=== PATIENT | female | born 1950 | race Caucasian/White ===

== ENCOUNTER 2017-09-23 16:35 | Observation (INO) | payer MEDICARE, OTHER ==
[2017-09-23 17:11] LABS: CHLORIDE,CL 100 mEq/L (98-106); SODIUM,NA 140 mEq/L (136-145)
[2017-09-23] MEDS ORDERED: Sodium Chloride 0.9% 10 ML Syringe FLUSH PRN (17:52)
[2017-09-23] MEDS ORDERED: Furosemide 40 MG/4 ML VIAL IVPUSH SCH (18:00)
[2017-09-23] MEDS ORDERED: Iopamidol 755 Mg/ML 100 ML Bottle IVPUSH ONE (18:26)
[2017-09-23] MEDS: Acetaminophen 325 MG Tab PO PRN (19:50)
[2017-09-23] MEDS: Enoxaparin 40 MG/0.4 ML Syringe SUBCUT SCH (19:52)
[2017-09-23] MEDS: cefTRIAXone 1 GM Vial IVPUSH SCH (19:53)
[2017-09-23] MEDS: Azithromycin 500 MG in Sodium Chloride 0.9% 250 ML IV SCH (19:53)
[2017-09-23] MEDS: Albuterol/Ipratropium 3.0-0.5 MG/3 ML Neb Soln NEB PRN (20:55)
[2017-09-23] MEDS: Codeine/Promethazine 10-6.25 MG/5 ML Syrup 5 ML UD Cup PO PRN (20:56)
[2017-09-23] MEDS: Temazepam 15 MG Cap PO PRN (22:04)
[2017-09-24] MEDS: Acetaminophen 325 MG Tab PO PRN ×3 (01:02→19:39)
[2017-09-24] MEDS: Albuterol/Ipratropium 3.0-0.5 MG/3 ML Neb Soln NEB PRN ×5 (01:02→21:44)
[2017-09-24] MEDS: Ibuprofen 200 MG Tab PO PRN ×3 (03:09→20:43)
[2017-09-24] MEDS: Codeine/Promethazine 10-6.25 MG/5 ML Syrup 5 ML UD Cup PO PRN ×4 (03:10→22:37)
[2017-09-24] MEDS: Cyanocobalamin (Vitamin B12) 1,000 MCG Tab PO SCH (07:59)
[2017-09-24] MEDS ORDERED: Hydrochlorothiazide 25 MG Tab PO SCH (08:00)
[2017-09-24] MEDS ORDERED: Lisinopril 20 MG Tab PO SCH (08:00)
[2017-09-24] MEDS: Furosemide 40 MG/4 ML VIAL IVPUSH SCH (08:03)
--- NOTE | 2017-09-24 10:39 | PN ---
DATE: 09/24/2017 S: Cristela is a 67-year-old female, who presented to the clinic initially yesterday with concerns of shortness of breath. She had noticed that symptoms had been present for about the last 3 days. She noticed that the shortness of breath would worsen with lying down and increase with activity. She did have some increasing swelling in her lower extremities as well, did feel that she was running a mild fever. Complete workup yesterday did show white blood count to be within normal limits, CRP was mildly elevated at 2.4, her D-dimer was elevated at 0.92. As she did have some expiratory wheezing, we did proceed and did a CTA of the chest to rule out PE. PE was negative; however, there was a 1.4 cm nodule in the superior segment of the left lower lobe. With its size, Radiology did recommend further evaluation with a PET-CT or tissue sampling. She does state today that she is feeling a lot better. She feels as if she is not as short of breath. She states she has been up, moving around a little bit, and does not feel like she gets short of breath as she did prior. She denies any concerns today; is feeling much better. O: VITAL SIGNS: Blood pressure 132/50; last O2 saturation was 94% on room air, she was 90% on admission; temperature is mildly elevated again this morning at 99.1; pulse is 73; weight is 268 pounds, up 1 pound from admit. GENERAL: A pleasant cooperative female. She is sitting in her hospital bed, does not really appear to be in any distress whatsoever, is having a normal conversation. HEENT: Grossly unremarkable. LUNGS: Breath sounds are slightly diminished. I do not hear any respiratory distress. No further expiratory wheezing is noted. No rhonchi, no rales or crackles. CARDIAC: Regular. No murmurs are noted. ABDOMEN: Morbidly obese; however, soft, nontender, nondistended. Bowel sounds are present. Normoactive. EXTREMITIES: Diminished pedal edema is noted bilaterally. ASSESSMENT: 1. SHORTNESS OF BREATH. 2. COUGH. 3. PEEL EDEMA, IMPROVED. 4. FEVER. P: I did review laboratory work from this morning, white blood count did drop down to 4900, CRP did increase slightly from 2.4 to 3.9. I did review her CTA of the chest; we will discuss with Dr. Ken with regard to further evaluation after discharge. I did discuss with her keeping her 1 more day, given another dose of Rocephin and azithromycin IV. We will give her one more dose of Lasix IV as well. We will get her up, ambulate and see if she has any decompensation with her O2 saturations. She is in complete agreement. Again, Dr. Ken will continue to follow as well. ZINA/SHAI /[id number]
[2017-09-24] MEDS ORDERED: LISINOPRIL PO ONE (11:00)
[2017-09-24] MEDS ORDERED: HCTZ PO ONE (11:00)
[2017-09-24] MEDS: cefTRIAXone 1 GM Vial IVPUSH SCH (18:00)
[2017-09-24] MEDS: Enoxaparin 40 MG/0.4 ML Syringe SUBCUT SCH (18:00)
[2017-09-24] MEDS: Azithromycin 500 MG in Sodium Chloride 0.9% 250 ML IV SCH (18:00)
[2017-09-24] MEDS: Temazepam 15 MG Cap PO PRN (21:52)
[2017-09-25] MEDS: Albuterol/Ipratropium 3.0-0.5 MG/3 ML Neb Soln NEB PRN ×2 (04:45→09:20)
[2017-09-25] MEDS: Acetaminophen 325 MG Tab PO PRN ×2 (05:36→11:48)
[2017-09-25] MEDS: Furosemide 40 MG/4 ML VIAL IVPUSH SCH (07:34)
[2017-09-25] MEDS: Cyanocobalamin (Vitamin B12) 1,000 MCG Tab PO SCH (07:34)
[2017-09-25] MEDS ORDERED: LISINOPRIL PO SCH (08:00)
[2017-09-25] MEDS ORDERED: HCTZ PO SCH (08:00)
[2017-09-25 11:52] VITALS: BP 145/59
--- NOTE | 2017-09-25 11:53 | DISCH ---
ADMISSION DIAGNOSIS: Shortness of breath. DISCHARGE DIAGNOSIS: 1. BRONCHITIS WITH BRONCHOSPASM. 2. LUNG NODULE. 3. HYPERTENSION. HISTORY: The patient is a 67-year-old female, who came with a 4-day history of URI symptoms, fever, and cough. Rafy Alexander evaluated her at that time. X-ray looked normal. She did have a slightly elevated D-dimer, and CRP. He did a CT of her chest because she had a nodule in her left lung noticed on chest x-ray and he did do CTA protocol. CT of the chest showed no signs of pulmonary emboli or obvious pneumonic infiltrate and the patient was admitted for bronchitis and appropriate cares. HOSPITAL COURSE: Patient had an O2 saturation of 90% on room air when she came in. She was placed temporarily on supplemental oxygen via nasal cannula. She was started on steroids, antibiotics, and nebulizer therapy and over the last two days, she has done very well. She is coughing up sputum and we do have a sputum culture of showing gram-positive coccobacilli, final report is pending. She did run some low grade temps throughout her stay but is feeling markedly better. Her lab work is reassuring. It is worthy of note that influenza testing was negative. At this time, she is saturating at 96% on room air. Cough is markedly improved. She feels comfortable ambulating around without any drop in her sats and we are going to discharge her home on a seven day course of antibiotics, prednisone, and nebs. We will see her back in clinic in one week for followup. COMPLICATIONS: During the stay were none. CONSULTATIONS: None. DISPOSITION: Discharged home. LUIS ANGEL /[id number]
[2017-09-25] MEDS: Ibuprofen 200 MG Tab PO PRN (12:44)
[2017-09-25] MEDS ORDERED: Azithromycin 500 MG in Sodium Chloride 0.9% 250 ML IV ONE (12:45)
[2017-09-25] MEDS ORDERED: cefTRIAXone 1 GM Vial IVPUSH ONE (12:45)
== END 2017-09-25 14:19 | disposition home health service (06) ==
LOC: CC.MS 16:35 → CC.FCMC 16:35 → CC.MS 17:24 → UNDOADMOB 17:24 → CC.MS 17:52
PROVIDERS: ADMIT Physician Assistant Medical; ATTEND Family Medicine
DX: J20.9 Acute bronchitis, unspecified (principal); R91.1 Solitary pulmonary nodule; I10 Essential (primary) hypertension; R60.0 Localized edema; R50.9 Fever, unspecified; Z87.2 Personal history of diseases of the skin and subcutaneous tissue; Z88.2 Allergy status to sulfonamides; Z79.899 Other long term (current) drug therapy; Z98.51 Tubal ligation status; Z87.891 Personal history of nicotine dependence
CPT/HCPCS: 36415; 71020; 71275; 80048; 80053; 83880; 85025; 85379; 86140; 87070; 87205; 87804; 93005; 93010; 94640; 96365; 96366; 96372; 96375; 96376; 99217; 99220; 99225; A9270; G0378; J0456; J0696; J1650; J1940; J7050; Q9967

== ENCOUNTER 2022-09-21 12:00 | Inpatient (IN) | payer MEDICARE, OTHER ==
[2022-09-21] MEDS ORDERED: Ondansetron 4 MG/2 ML SDV IV PRN (13:25)
[2022-09-21] MEDS ORDERED: Sodium Chloride 0.9% 10 ML Syringe FLUSH PRN (13:25)
[2022-09-21] MEDS ORDERED: Albuterol/Ipratropium 3.0-0.5 MG/3 ML Neb Soln NEB PRN (13:33)
[2022-09-21] MEDS: Mupirocin Oint 22 GM Tube TOP SCH ×2 (14:02→19:26)
[2022-09-21] MEDS: Budesonide 0.5 MG/2 ML Neb Susp NEB SCH (19:25)
[2022-09-21] MEDS: amLODIPine 2.5 MG Tab PO SCH (19:26)
[2022-09-21] MEDS: Enoxaparin 40 MG/0.4 ML Syringe SUBCUT SCH (19:27)
[2022-09-22] MEDS: Calcium Carbonate 500 MG Tab.Chew PO SCH (07:47)
[2022-09-22] MEDS: Multivitamin Tab PO SCH (07:47)
[2022-09-22] MEDS: Cholecalciferol (Vitamin D3) 25 MCG Tab PO SCH (07:47)
[2022-09-22] MEDS: Budesonide 0.5 MG/2 ML Neb Susp NEB SCH ×2 (07:47→20:22)
[2022-09-22] MEDS: Lactobacillus Rhamnosus GG (Probiotic) Cap PO SCH (07:48)
[2022-09-22] MEDS: Furosemide 40 MG Tab PO SCH (07:48)
[2022-09-22] MEDS: Lisinopril 20 MG Tab PO SCH (07:48)
[2022-09-22] MEDS: Cyanocobalamin (Vitamin B12) 1,000 MCG Tab PO SCH (07:48)
[2022-09-22] MEDS: Mupirocin Oint 22 GM Tube TOP SCH ×3 (10:49→20:21)
[2022-09-22] MEDS: predniSONE 20 MG Tab PO SCH (11:36)
[2022-09-22] MEDS: Enoxaparin 40 MG/0.4 ML Syringe SUBCUT SCH (20:21)
[2022-09-22] MEDS: amLODIPine 2.5 MG Tab PO SCH (20:21)
[2022-09-23] MEDS: Acetaminophen 325 MG Tab PO PRN (04:35)
[2022-09-23] MEDS: Calcium Carbonate 500 MG Tab.Chew PO SCH (07:37)
[2022-09-23] MEDS: Cholecalciferol (Vitamin D3) 25 MCG Tab PO SCH (07:43)
[2022-09-23] MEDS: Lactobacillus Rhamnosus GG (Probiotic) Cap PO SCH (07:43)
[2022-09-23] MEDS: Lisinopril 20 MG Tab PO SCH (07:43)
[2022-09-23] MEDS: Cyanocobalamin (Vitamin B12) 1,000 MCG Tab PO SCH (07:44)
[2022-09-23] MEDS: Multivitamin Tab PO SCH (07:44)
[2022-09-23] MEDS: Furosemide 40 MG Tab PO SCH (07:45)
[2022-09-23] MEDS: Budesonide 0.5 MG/2 ML Neb Susp NEB SCH ×2 (07:45→19:53)
[2022-09-23] MEDS: Mupirocin Oint 22 GM Tube TOP SCH ×3 (11:49→20:02)
[2022-09-23] MEDS: predniSONE 20 MG Tab PO SCH (11:49)
[2022-09-23] MEDS: amLODIPine 2.5 MG Tab PO SCH (20:02)
[2022-09-23] MEDS: Enoxaparin 40 MG/0.4 ML Syringe SUBCUT SCH (20:11)
[2022-09-24] MEDS: Acetaminophen 325 MG Tab PO PRN (06:26)
[2022-09-24 07:55] VITALS: PULSE 75
[2022-09-24] MEDS: Calcium Carbonate 500 MG Tab.Chew PO SCH (08:13)
[2022-09-24] MEDS: Cholecalciferol (Vitamin D3) 25 MCG Tab PO SCH (08:14)
[2022-09-24] MEDS: Furosemide 40 MG Tab PO SCH (08:14)
[2022-09-24] MEDS: Lactobacillus Rhamnosus GG (Probiotic) Cap PO SCH (08:14)
[2022-09-24] MEDS: Lisinopril 20 MG Tab PO SCH (08:14)
[2022-09-24] MEDS: Multivitamin Tab PO SCH (08:14)
[2022-09-24] MEDS: Budesonide 0.5 MG/2 ML Neb Susp NEB SCH (08:14)
[2022-09-24] MEDS: Cyanocobalamin (Vitamin B12) 1,000 MCG Tab PO SCH (08:15)
[2022-09-24 08:16] VITALS: BP 131/43
[2022-09-24] MEDS: Mupirocin Oint 22 GM Tube TOP SCH ×2 (08:43→14:02)
[2022-09-24] MEDS: predniSONE 20 MG Tab PO SCH (12:00)
== END 2022-09-24 15:30 | disposition home or self-care (01) | DRG 206 ==
LOC: UNDOADMIN 12:00 → CC.MS 12:00
PROVIDERS: ADMIT Nurse Practitioner Family; ATTEND Nurse Practitioner Family
DX: R09.02 Hypoxemia (principal); L03.116 Cellulitis of left lower limb; L03.115 Cellulitis of right lower limb; I10 Essential (primary) hypertension; F32.A Depression, unspecified; E66.9 Obesity, unspecified; Z88.1 Allergy status to other antibiotic agents; Z88.2 Allergy status to sulfonamides; Z79.899 Other long term (current) drug therapy; Z87.01 Personal history of pneumonia (recurrent)
CPT/HCPCS: 71250; 94640; 97161-GP; A9270-GY; J1650; J7512

== ENCOUNTER → 2023-04-14 | Day surgery (SDC) | payer MEDICARE, OTHER ==
[2023-04-14 11:22] VITALS: BP 148/68; PULSE 60
[2023-04-14] MEDS: Lidocaine 1% 5 ML VIAL INJECT ONE ×2 (12:13→12:58)
== END ==
LOC: CC.SDS 10:53
PROVIDERS: ATTEND Family Medicine
DX: I83.018 Varicose veins of right lower extremity with ulcer other part of lower leg (principal); I83.028 Varicose veins of left lower extremity with ulcer other part of lower leg; L97.819 Non-pressure chronic ulcer of other part of right lower leg with unspecified severity; L97.829 Non-pressure chronic ulcer of other part of left lower leg with unspecified severity; I87.2 Venous insufficiency (chronic) (peripheral); I10 Essential (primary) hypertension; L97.909 Non-pressure chronic ulcer of unspecified part of unspecified lower leg with unspecified severity; Z79.899 Other long term (current) drug therapy; Z88.1 Allergy status to other antibiotic agents; Z88.2 Allergy status to sulfonamides
CPT/HCPCS: A4216; C1888; J3490

== ENCOUNTER 2023-06-10 11:16 | Inpatient (IN) | payer MEDICARE, OTHER ==
[2023-06-10 11:22] LABS: BASOPHILS ABSOLUTE AUTO 0.05 10^3/uL (0.00-0.50); BASOPHILS PERCENT AUTO 0.9 % (0-1); EOSINOPHILS ABSOLUTE AUTO 0.43 10^3/uL (0.00-1.50); HEMATOCRIT 43.7 % (37.0-47.0); HEMOGLOBIN 14.4 g/dL (12.0-16.0); LYMPHOCYTES ABSOLUTE AUTO 1.43 10^3/uL (0.60-5.00); LYMPHOCYTES PERCENT AUTO 26.7 % (24-44); MEAN CORPUSCULAR HEMOGLOBIN 29.3 pg (27.0-32.0); MEAN CORPUSCULAR VOLUME 88.8 fL (83.0-97.0); MONOCYTES ABSOLUTE AUTO 0.44 10^3/uL (0.00-1.50); MONOCYTES PERCENT AUTO 8.2 % (0-10); NEUTROPHILS PERCENT AUTO 56.2 % (41-71); PLATELET COUNT,PLT 184 10^3/uL (150-400); RED BLOOD CELL COUNT 4.92 x10^6/uL (4.00-5.50); WHITE BLOOD CELL COUNT,WBC 5.4 10^3/uL (4.0-11.0)
[2023-06-10 11:31] LABS: BLOOD UREA NITROGEN,BUN 15 mg/dL (7-18); C-REACTIVE PROTEIN 0.85 mg/dL (<=0.30); CALCIUM 9.5 mg/dL (8.4-10.1); CARBON DIOXIDE,CO2 36 mmol/L (21-32); CHLORIDE,CL 98 mEq/L (98-106); GLUCOSE RANDOM 100 mg/dL (75-99); POTASSIUM,K 4.2 mEq/L (3.5-5.0); SODIUM,NA 138 mEq/L (136-145)
[2023-06-10 11:32] LABS: ESTIMATED GFR 59 mL/min (>=60)
[2023-06-10] MEDS ORDERED: Ondansetron 4 MG Tab.DIS PO PRN (13:02)
[2023-06-10] MEDS ORDERED: Ondansetron 4 MG/2 ML SDV IV PRN (13:02)
[2023-06-10] MEDS ORDERED: Sodium Chloride 0.9% 10 ML Syringe FLUSH PRN (13:02)
[2023-06-10] MEDS ORDERED: Albuterol 6.7 GM Inhaler INH PRN (13:13)
[2023-06-10] MEDS ORDERED: Piperacillin/Tazobactam 4.5 GM in Sodium Chloride 0.9% 100 ML IV ONE (13:45)
[2023-06-10] MEDS: Acetaminophen 500 MG Tab PO PRN ×2 (13:54→23:55)
[2023-06-10] MEDS: Furosemide 40 MG Tab PO SCH (15:47)
[2023-06-10] MEDS: Acetaminophen/HYDROcodone 325-5 MG Tab PO PRN ×2 (16:30→20:37)
[2023-06-10] MEDS: Enoxaparin 40 MG/0.4 ML Syringe SUBCUT SCH (19:17)
[2023-06-10] MEDS ORDERED: Piperacillin/Tazobactam 3.375 GM in Sodium Chloride 0.9% 100 ML IV SCH (20:00)
[2023-06-11] MEDS ORDERED: diphenhydrAMINE 25 MG Cap PO ONE (02:35)
[2023-06-11] MEDS: Albuterol/Ipratropium 3.0-0.5 MG/3 ML Neb Soln NEB PRN ×3 (02:37→21:00)
[2023-06-11] MEDS: Acetaminophen/HYDROcodone 325-5 MG Tab PO PRN ×3 (02:38→12:55)
[2023-06-11 07:21] LABS: BASOPHILS ABSOLUTE AUTO 0.03 10^3/uL (0.00-0.50); BASOPHILS PERCENT AUTO 0.7 % (0-1); EOSINOPHILS ABSOLUTE AUTO 0.57 10^3/uL (0.00-1.50); EOSINOPHILS PERCENT AUTO 13.2 % (0-6); HEMATOCRIT 41.9 % (37.0-47.0); HEMOGLOBIN 13.9 g/dL (12.0-16.0); LYMPHOCYTES ABSOLUTE AUTO 1.27 10^3/uL (0.60-5.00); LYMPHOCYTES PERCENT AUTO 29.4 % (24-44); MEAN CORPUSCULAR HEMOGLOBIN 29.9 pg (27.0-32.0); MEAN CORPUSCULAR HGB CONC 33.2 g/dL (32.0-36.0); MEAN CORPUSCULAR VOLUME 90.1 fL (83.0-97.0); MONOCYTES ABSOLUTE AUTO 0.41 10^3/uL (0.00-1.50); MONOCYTES PERCENT AUTO 9.5 % (0-10); NEUTROPHILS ABSOLUTE AUTO 2.04 x10^3/uL (1.80-8.00); NEUTROPHILS PERCENT AUTO 47.2 % (41-71); PLATELET COUNT,PLT 171 10^3/uL (150-400); RED BLOOD CELL COUNT 4.65 x10^6/uL (4.00-5.50); WHITE BLOOD CELL COUNT,WBC 4.3 10^3/uL (4.0-11.0)
[2023-06-11] MEDS: Calcium Carbonate/Vitamin D3 1250 MG-5 MCG Tab PO SCH (07:42)
[2023-06-11] MEDS: Lisinopril 20 MG Tab PO SCH (07:42)
[2023-06-11] MEDS: Cyanocobalamin (Vitamin B12) 1,000 MCG Tab PO SCH (07:42)
[2023-06-11] MEDS: Furosemide 40 MG Tab PO SCH ×2 (07:43→16:14)
[2023-06-11] MEDS: Multivitamin Tab PO SCH (07:43)
[2023-06-11] MEDS: Cholecalciferol (Vitamin D3) 25 MCG Tab PO SCH (07:43)
[2023-06-11] MEDS: Metoprolol Succinate 100 MG Tab.ER PO SCH (07:56)
[2023-06-11 08:04] LABS: ALBUMIN 2.8 g/dL (3.4-5.0); BILIRUBIN TOTAL 0.5 mg/dL (0.0-1.0); C-REACTIVE PROTEIN 0.78 mg/dL (<=0.30); CALCIUM 8.5 mg/dL (8.4-10.1); CREATININE 1.1 mg/dL (0.6-1.0); EST CRCL DRUG DOSING (CG) 37.68 mL/min; POTASSIUM,K 3.8 mEq/L (3.5-5.0); PROTEIN TOTAL,TP 6.9 g/dL (6.4-8.2)
[2023-06-11] MEDS: ceFAZolin 2 GM Vial IVPUSH SCH ×2 (08:45→16:14)
[2023-06-11] MEDS: Enoxaparin 40 MG/0.4 ML Syringe SUBCUT SCH (19:19)
[2023-06-11] MEDS: diphenhydrAMINE 25 MG Cap PO PRN (20:27)
[2023-06-12] MEDS: ceFAZolin 2 GM Vial IVPUSH SCH ×4 (00:06→23:24)
[2023-06-12] MEDS: Acetaminophen/HYDROcodone 325-5 MG Tab PO PRN ×3 (00:14→23:25)
[2023-06-12] MEDS: diphenhydrAMINE 25 MG Cap PO PRN ×3 (00:15→23:24)
[2023-06-12] MEDS: Albuterol/Ipratropium 3.0-0.5 MG/3 ML Neb Soln NEB PRN ×3 (07:10→18:42)
[2023-06-12] MEDS: Multivitamin Tab PO SCH (07:36)
[2023-06-12] MEDS: Calcium Carbonate/Vitamin D3 1250 MG-5 MCG Tab PO SCH (07:36)
[2023-06-12] MEDS: Furosemide 40 MG Tab PO SCH ×2 (07:36→16:07)
[2023-06-12] MEDS: Metoprolol Succinate 100 MG Tab.ER PO SCH (07:36)
[2023-06-12] MEDS: Lisinopril 20 MG Tab PO SCH (07:37)
[2023-06-12] MEDS: Cyanocobalamin (Vitamin B12) 1,000 MCG Tab PO SCH (07:37)
[2023-06-12] MEDS: Cholecalciferol (Vitamin D3) 25 MCG Tab PO SCH (07:38)
[2023-06-12 08:03] LABS: BASOPHILS ABSOLUTE AUTO 0.02 10^3/uL (0.00-0.50); BASOPHILS PERCENT AUTO 0.4 % (0-1); EOSINOPHILS PERCENT AUTO 11.4 % (0-6); HEMATOCRIT 42.6 % (37.0-47.0); IMMATURE GRAN ABSOLUTE AUTO 0.01 10^3/uL (0.00-0.49); IMMATURE GRAN PERCENT AUTO 0.2 % (0.0-4.9); LYMPHOCYTES ABSOLUTE AUTO 1.43 10^3/uL (0.60-5.00); LYMPHOCYTES PERCENT AUTO 27.1 % (24-44); MEAN CORPUSCULAR HEMOGLOBIN 29.6 pg (27.0-32.0); MEAN CORPUSCULAR HGB CONC 32.9 g/dL (32.0-36.0); MEAN CORPUSCULAR VOLUME 90.1 fL (83.0-97.0); MONOCYTES ABSOLUTE AUTO 0.47 10^3/uL (0.00-1.50); MONOCYTES PERCENT AUTO 8.9 % (0-10); NEUTROPHILS ABSOLUTE AUTO 2.75 x10^3/uL (1.80-8.00); PLATELET COUNT,PLT 170 10^3/uL (150-400); RED BLOOD CELL COUNT 4.73 x10^6/uL (4.00-5.50); WHITE BLOOD CELL COUNT,WBC 5.3 10^3/uL (4.0-11.0)
[2023-06-12 08:23] LABS: ALBUMIN 3.1 g/dL (3.4-5.0); BILIRUBIN TOTAL 0.5 mg/dL (0.0-1.0); C-REACTIVE PROTEIN 0.88 mg/dL (<=0.30); CALCIUM 8.9 mg/dL (8.4-10.1); CREATININE 0.9 mg/dL (0.6-1.0); EST CRCL DRUG DOSING (CG) 46.05 mL/min; POTASSIUM,K 3.9 mEq/L (3.5-5.0); PROTEIN TOTAL,TP 7.4 g/dL (6.4-8.2)
[2023-06-12] MEDS: Enoxaparin 40 MG/0.4 ML Syringe SUBCUT SCH (19:08)
[2023-06-13] MEDS: Albuterol/Ipratropium 3.0-0.5 MG/3 ML Neb Soln NEB PRN (07:15)
[2023-06-13] MEDS: Cyanocobalamin (Vitamin B12) 1,000 MCG Tab PO SCH (07:38)
[2023-06-13] MEDS: Multivitamin Tab PO SCH (07:38)
[2023-06-13] MEDS: Calcium Carbonate/Vitamin D3 1250 MG-5 MCG Tab PO SCH (07:38)
[2023-06-13] MEDS: Metoprolol Succinate 100 MG Tab.ER PO SCH (07:39)
[2023-06-13] MEDS: Lisinopril 20 MG Tab PO SCH (07:39)
[2023-06-13] MEDS: Furosemide 40 MG Tab PO SCH (07:39)
[2023-06-13] MEDS: Cholecalciferol (Vitamin D3) 25 MCG Tab PO SCH (07:39)
[2023-06-13] MEDS: ceFAZolin 2 GM Vial IVPUSH SCH (07:40)
[2023-06-13 07:41] VITALS: BP 127/43; PULSE 52
[2023-06-13] MEDS: Acetaminophen/HYDROcodone 325-5 MG Tab PO PRN (07:46)
[2023-06-13 07:51] LABS: BASOPHILS ABSOLUTE AUTO 0.04 10^3/uL (0.00-0.50); BASOPHILS PERCENT AUTO 0.8 % (0-1); EOSINOPHILS ABSOLUTE AUTO 0.67 10^3/uL (0.00-1.50); EOSINOPHILS PERCENT AUTO 13.1 % (0-6); HEMATOCRIT 43.2 % (37.0-47.0); HEMOGLOBIN 14.1 g/dL (12.0-16.0); LYMPHOCYTES ABSOLUTE AUTO 1.91 10^3/uL (0.60-5.00); LYMPHOCYTES PERCENT AUTO 37.2 % (24-44); MEAN CORPUSCULAR HEMOGLOBIN 29.4 pg (27.0-32.0); MEAN CORPUSCULAR HGB CONC 32.6 g/dL (32.0-36.0); MEAN CORPUSCULAR VOLUME 90.2 fL (83.0-97.0); MONOCYTES ABSOLUTE AUTO 0.44 10^3/uL (0.00-1.50); MONOCYTES PERCENT AUTO 8.6 % (0-10); NEUTROPHILS ABSOLUTE AUTO 2.07 x10^3/uL (1.80-8.00); NEUTROPHILS PERCENT AUTO 40.3 % (41-71); PLATELET COUNT,PLT 186 10^3/uL (150-400); RED BLOOD CELL COUNT 4.79 x10^6/uL (4.00-5.50); WHITE BLOOD CELL COUNT,WBC 5.1 10^3/uL (4.0-11.0)
[2023-06-13 08:08] LABS: ALBUMIN 3.1 g/dL (3.4-5.0); BILIRUBIN TOTAL 0.4 mg/dL (0.0-1.0); C-REACTIVE PROTEIN 1.06 mg/dL (<=0.30); CREATININE 0.9 mg/dL (0.6-1.0); EST CRCL DRUG DOSING (CG) 46.05 mL/min; POTASSIUM,K 3.8 mEq/L (3.5-5.0); PROTEIN TOTAL,TP 7.3 g/dL (6.4-8.2)
[2023-06-13] MEDS ORDERED: Lactobacillus Rhamnosus GG (Probiotic) Cap PO SCH (10:00)
== END 2023-06-13 10:41 | disposition swing bed (61) | DRG 303 ==
LOC: CC.FCMC 11:16 → CC.MS 12:24 → UNDOADMIN 12:24 → CC.MS 13:02
PROVIDERS: ADMIT Family Medicine; ATTEND Nurse Practitioner Family
DX: I87.8 Other specified disorders of veins (principal); L03.115 Cellulitis of right lower limb; Z68.42 Body mass index [BMI] 45.0-49.9, adult; L03.116 Cellulitis of left lower limb; I83.019 Varicose veins of right lower extremity with ulcer of unspecified site; L97.919 Non-pressure chronic ulcer of unspecified part of right lower leg with unspecified severity; I83.029 Varicose veins of left lower extremity with ulcer of unspecified site; L97.929 Non-pressure chronic ulcer of unspecified part of left lower leg with unspecified severity; F32.A Depression, unspecified; Z88.2 Allergy status to sulfonamides; Z88.8 Allergy status to other drugs, medicaments and biological substances; I10 Essential (primary) hypertension; Z90.49 Acquired absence of other specified parts of digestive tract; Z98.890 Other specified postprocedural states; E66.9 Obesity, unspecified; Z79.899 Other long term (current) drug therapy
CPT/HCPCS: 29580-GP; 36415; 80048; 80053; 83605; 85025; 86140; 94640; A9270-GY; J0690; J1650; J2543; J3490; J7620-GY

== ENCOUNTER 2023-06-13 10:35 | Inpatient (IN) | payer MEDICARE, OTHER ==
[2023-06-13] MEDS ORDERED: Albuterol 6.7 GM Inhaler INH PRN (11:12)
[2023-06-13] MEDS ORDERED: Ondansetron 4 MG Tab.DIS PO PRN (11:12)
[2023-06-13] MEDS ORDERED: Sodium Chloride 0.9% 10 ML Syringe FLUSH PRN ×2 (11:12)
[2023-06-13] MEDS ORDERED: Ondansetron 4 MG/2 ML SDV IV PRN (11:12)
[2023-06-13] MEDS ORDERED: Acetaminophen 500 MG Tab PO PRN (11:12)
[2023-06-13] MEDS: Albuterol/Ipratropium 3.0-0.5 MG/3 ML Neb Soln NEB PRN ×2 (14:18→21:05)
[2023-06-13] MEDS: Furosemide 40 MG Tab PO SCH (16:30)
[2023-06-13] MEDS: ceFAZolin 2 GM Vial IVPUSH SCH ×2 (16:31→23:27)
[2023-06-13] MEDS: Enoxaparin 40 MG/0.4 ML Syringe SUBCUT SCH (20:56)
[2023-06-13] MEDS: diphenhydrAMINE 25 MG Cap PO PRN (23:24)
[2023-06-13] MEDS: Acetaminophen/HYDROcodone 325-5 MG Tab PO PRN (23:24)
[2023-06-14] MEDS: Albuterol/Ipratropium 3.0-0.5 MG/3 ML Neb Soln NEB PRN ×3 (06:49→21:17)
[2023-06-14] MEDS: Cholecalciferol (Vitamin D3) 25 MCG Tab PO SCH (08:40)
[2023-06-14] MEDS: ceFAZolin 2 GM Vial IVPUSH SCH ×3 (08:40→23:27)
[2023-06-14] MEDS: Furosemide 40 MG Tab PO SCH ×2 (08:41→15:26)
[2023-06-14] MEDS: Lactobacillus Rhamnosus GG (Probiotic) Cap PO SCH (08:42)
[2023-06-14] MEDS: Metoprolol Succinate 100 MG Tab.ER PO SCH (08:43)
[2023-06-14] MEDS: Calcium Carbonate/Vitamin D3 1250 MG-5 MCG Tab PO SCH (08:43)
[2023-06-14] MEDS: Multivitamin Tab PO SCH (08:44)
[2023-06-14] MEDS: Lisinopril 20 MG Tab PO SCH (08:44)
[2023-06-14] MEDS: Cyanocobalamin (Vitamin B12) 1,000 MCG Tab PO SCH (08:44)
[2023-06-14] MEDS: Enoxaparin 40 MG/0.4 ML Syringe SUBCUT SCH (20:40)
[2023-06-14] MEDS: Acetaminophen/HYDROcodone 325-5 MG Tab PO PRN (23:10)
[2023-06-14] MEDS: diphenhydrAMINE 25 MG Cap PO PRN (23:10)
[2023-06-15] MEDS: Albuterol/Ipratropium 3.0-0.5 MG/3 ML Neb Soln NEB PRN ×3 (07:07→20:14)
[2023-06-15] MEDS: ceFAZolin 2 GM Vial IVPUSH SCH ×3 (09:13→23:55)
[2023-06-15] MEDS: Lactobacillus Rhamnosus GG (Probiotic) Cap PO SCH (09:14)
[2023-06-15] MEDS: Metoprolol Succinate 100 MG Tab.ER PO SCH (09:14)
[2023-06-15] MEDS: Calcium Carbonate/Vitamin D3 1250 MG-5 MCG Tab PO SCH (09:15)
[2023-06-15] MEDS: Cholecalciferol (Vitamin D3) 25 MCG Tab PO SCH (09:15)
[2023-06-15] MEDS: Cyanocobalamin (Vitamin B12) 1,000 MCG Tab PO SCH (09:15)
[2023-06-15] MEDS: Furosemide 40 MG Tab PO SCH ×2 (09:16→15:43)
[2023-06-15] MEDS: Lisinopril 20 MG Tab PO SCH (09:16)
[2023-06-15] MEDS: Multivitamin Tab PO SCH (09:17)
[2023-06-15] MEDS: Enoxaparin 40 MG/0.4 ML Syringe SUBCUT SCH (20:14)
[2023-06-15] MEDS: Acetaminophen/HYDROcodone 325-5 MG Tab PO PRN (23:57)
[2023-06-15] MEDS: diphenhydrAMINE 25 MG Cap PO PRN (23:57)
[2023-06-16] MEDS: Albuterol/Ipratropium 3.0-0.5 MG/3 ML Neb Soln NEB PRN ×3 (07:29→19:27)
[2023-06-16] MEDS: ceFAZolin 2 GM Vial IVPUSH SCH ×3 (07:58→23:43)
[2023-06-16] MEDS: Metoprolol Succinate 100 MG Tab.ER PO SCH (08:06)
[2023-06-16] MEDS: Lactobacillus Rhamnosus GG (Probiotic) Cap PO SCH (08:06)
[2023-06-16] MEDS: Cholecalciferol (Vitamin D3) 25 MCG Tab PO SCH (08:11)
[2023-06-16] MEDS: Multivitamin Tab PO SCH (08:11)
[2023-06-16] MEDS: Furosemide 40 MG Tab PO SCH ×2 (08:11→16:12)
[2023-06-16] MEDS: Lisinopril 20 MG Tab PO SCH (08:11)
[2023-06-16] MEDS: Calcium Carbonate/Vitamin D3 1250 MG-5 MCG Tab PO SCH (08:11)
[2023-06-16] MEDS: Cyanocobalamin (Vitamin B12) 1,000 MCG Tab PO SCH (08:11)
[2023-06-16] MEDS: Enoxaparin 40 MG/0.4 ML Syringe SUBCUT SCH (19:23)
[2023-06-16] MEDS: diphenhydrAMINE 25 MG Cap PO PRN (22:58)
[2023-06-16] MEDS: Acetaminophen/HYDROcodone 325-5 MG Tab PO PRN (22:58)
[2023-06-17] MEDS: Albuterol/Ipratropium 3.0-0.5 MG/3 ML Neb Soln NEB PRN ×2 (05:34→15:10)
[2023-06-17] MEDS: ceFAZolin 2 GM Vial IVPUSH SCH ×3 (07:50→23:55)
[2023-06-17] MEDS: Furosemide 40 MG Tab PO SCH ×2 (07:50→16:33)
[2023-06-17] MEDS: Multivitamin Tab PO SCH (07:51)
[2023-06-17] MEDS: Calcium Carbonate/Vitamin D3 1250 MG-5 MCG Tab PO SCH (07:51)
[2023-06-17] MEDS: Lisinopril 20 MG Tab PO SCH (07:52)
[2023-06-17] MEDS: Cholecalciferol (Vitamin D3) 25 MCG Tab PO SCH (07:52)
[2023-06-17] MEDS: Lactobacillus Rhamnosus GG (Probiotic) Cap PO SCH (07:52)
[2023-06-17] MEDS: Cyanocobalamin (Vitamin B12) 1,000 MCG Tab PO SCH (07:53)
[2023-06-17] MEDS: Metoprolol Succinate 100 MG Tab.ER PO SCH (08:39)
[2023-06-17] MEDS ORDERED: Ceres/Mineral Oil/Petrolatum/Wool Alcohol Cream 113 GM Tube TOP PRN (14:13)
[2023-06-17] MEDS: Enoxaparin 40 MG/0.4 ML Syringe SUBCUT SCH (19:26)
[2023-06-17] MEDS: Acetaminophen/HYDROcodone 325-5 MG Tab PO PRN (22:41)
[2023-06-17] MEDS: diphenhydrAMINE 25 MG Cap PO PRN (22:41)
[2023-06-18] MEDS: Multivitamin Tab PO SCH (07:39)
[2023-06-18] MEDS: Calcium Carbonate/Vitamin D3 1250 MG-5 MCG Tab PO SCH (07:39)
[2023-06-18] MEDS: Lisinopril 20 MG Tab PO SCH (07:39)
[2023-06-18] MEDS: Cholecalciferol (Vitamin D3) 25 MCG Tab PO SCH (07:39)
[2023-06-18] MEDS: Furosemide 40 MG Tab PO SCH (07:39)
[2023-06-18] MEDS: Cyanocobalamin (Vitamin B12) 1,000 MCG Tab PO SCH (07:40)
[2023-06-18] MEDS: Metoprolol Succinate 100 MG Tab.ER PO SCH (07:40)
[2023-06-18] MEDS: Lactobacillus Rhamnosus GG (Probiotic) Cap PO SCH (07:41)
[2023-06-18 07:44] VITALS: BP 127/58; PULSE 73
[2023-06-18] MEDS: ceFAZolin 2 GM Vial IVPUSH SCH (08:41)
[2023-06-18] MEDS: Albuterol/Ipratropium 3.0-0.5 MG/3 ML Neb Soln NEB PRN (08:42)
== END 2023-06-18 11:45 | disposition home or self-care (01) | DRG 603 ==
LOC: CC.MS 10:35 → UNDOADMIN 10:48 → CC.MS 10:48
PROVIDERS: ADMIT Nurse Practitioner Family; ATTEND Nurse Practitioner Family
DX: L03.116 Cellulitis of left lower limb (principal); L03.115 Cellulitis of right lower limb; I87.2 Venous insufficiency (chronic) (peripheral); Z88.1 Allergy status to other antibiotic agents; Z88.2 Allergy status to sulfonamides; Z98.51 Tubal ligation status; Z79.899 Other long term (current) drug therapy
CPT/HCPCS: 94640; A9270-GY; J0690; J1650; J7620-GY

== ENCOUNTER 2025-05-26 21:15 | Inpatient (IN) | payer MEDICARE, OTHER ==
[2025-05-26] MEDS ORDERED: Sodium Chloride 0.9% 10 ML Syringe FLUSH PRN (21:48)
[2025-05-26 21:58] LABS: BASOPHILS ABSOLUTE AUTO 0.05 10^3/uL (0.00-0.50); BASOPHILS PERCENT AUTO 0.8 % (0-1); EOSINOPHILS ABSOLUTE AUTO 0.47 10^3/uL (0.00-1.50); EOSINOPHILS PERCENT AUTO 7.1 % (0-6); IMMATURE GRAN ABSOLUTE AUTO 0.01 10^3/uL (0.00-0.49); IMMATURE GRAN PERCENT AUTO 0.2 % (0.0-4.9); LYMPHOCYTES ABSOLUTE AUTO 1.41 10^3/uL (0.60-5.00); LYMPHOCYTES PERCENT AUTO 21.3 % (24-44); MONOCYTES ABSOLUTE AUTO 0.63 10^3/uL (0.00-1.50); MONOCYTES PERCENT AUTO 9.5 % (0-10); NEUTROPHILS ABSOLUTE AUTO 4.06 x10^3/uL (1.80-8.00); NEUTROPHILS PERCENT AUTO 61.1 % (41-71); PLATELET COUNT,PLT 222 10^3/uL (150-400); RED BLOOD CELL COUNT 4.40 x10^6/uL (4.00-5.50); WHITE BLOOD CELL COUNT,WBC 6.6 10^3/uL (4.0-11.0)
[2025-05-26 22:14] LABS: LACTIC ACID 0.8 mmol/L (0.4-2.0)
[2025-05-26 22:20] LABS: ALANINE AMINOTRANSFERASE,ALT 25.0 U/L (12-78); ASPARTATE AMNIOTRANSFERASE,AST 22.0 U/L (15-37); BILIRUBIN TOTAL 0.8 mg/dL (0.0-1.0); BLOOD UREA NITROGEN,BUN 29.0 mg/dL (7-18); CARBON DIOXIDE,CO2 31.0 mmol/L (21-32); CHLORIDE,CL 95.0 mEq/L (98-106); CREATININE 1.4 mg/dL (0.6-1.0); EST CRCL DRUG DOSING (CG) 28.72 mL/min; GLUCOSE RANDOM 91.0 mg/dL (75-99); POTASSIUM,K 4.1 mEq/L (3.5-5.0); PROTEIN TOTAL,TP 8.2 g/dL (6.4-8.2); SODIUM,NA 134.0 mEq/L (136-145)
[2025-05-26 22:21] LABS: ESTIMATED GFR 39.0 mL/min (>=60)
[2025-05-26] MEDS ORDERED: Ondansetron 4 MG/2 ML SDV IV PRN (23:30)
[2025-05-26] MEDS ORDERED: Ondansetron 4 MG Tab.DIS PO PRN (23:30)
[2025-05-27] MEDS: Cyanocobalamin (Vitamin B12) 1,000 MCG Tab PO SCH (07:32)
[2025-05-27] MEDS: Cholecalciferol (Vitamin D3) 25 MCG Tab PO SCH (07:33)
[2025-05-27] MEDS: Potassium Chloride 10 MEQ Tab.ER PO SCH (07:33)
[2025-05-27 07:38] LABS: BASOPHILS ABSOLUTE AUTO 0.04 10^3/uL (0.00-0.50); BASOPHILS PERCENT AUTO 0.7 % (0-1); EOSINOPHILS ABSOLUTE AUTO 0.44 10^3/uL (0.00-1.50); EOSINOPHILS PERCENT AUTO 7.8 % (0-6); IMMATURE GRAN ABSOLUTE AUTO 0.00 10^3/uL (0.00-0.49); IMMATURE GRAN PERCENT AUTO 0.0 % (0.0-4.9); LYMPHOCYTES ABSOLUTE AUTO 1.25 10^3/uL (0.60-5.00); LYMPHOCYTES PERCENT AUTO 22.1 % (24-44); MONOCYTES ABSOLUTE AUTO 0.50 10^3/uL (0.00-1.50); MONOCYTES PERCENT AUTO 8.8 % (0-10); NEUTROPHILS ABSOLUTE AUTO 3.43 x10^3/uL (1.80-8.00); NEUTROPHILS PERCENT AUTO 60.6 % (41-71); PLATELET COUNT,PLT 212 10^3/uL (150-400); RED BLOOD CELL COUNT 4.21 x10^6/uL (4.00-5.50); WHITE BLOOD CELL COUNT,WBC 5.7 10^3/uL (4.0-11.0)
[2025-05-27 07:59] LABS: ALANINE AMINOTRANSFERASE,ALT 23.0 U/L (12-78); ASPARTATE AMNIOTRANSFERASE,AST 16.0 U/L (15-37); BILIRUBIN TOTAL 0.5 mg/dL (0.0-1.0); BLOOD UREA NITROGEN,BUN 21.0 mg/dL (7-18); CARBON DIOXIDE,CO2 29.0 mmol/L (21-32); CHLORIDE,CL 99.0 mEq/L (98-106); CREATININE 1.2 mg/dL (0.6-1.0); EST CRCL DRUG DOSING (CG) 33.51 mL/min; GLUCOSE RANDOM 98.0 mg/dL (75-99); POTASSIUM,K 3.5 mEq/L (3.5-5.0); PROTEIN TOTAL,TP 7.5 g/dL (6.4-8.2); SODIUM,NA 137.0 mEq/L (136-145)
[2025-05-27 08:23] LABS: ESTIMATED GFR 47.0 mL/min (>=60)
[2025-05-28 08:16] LABS: ALANINE AMINOTRANSFERASE,ALT 18.0 U/L (12-78); ASPARTATE AMNIOTRANSFERASE,AST 18.0 U/L (15-37); BILIRUBIN TOTAL 0.4 mg/dL (0.0-1.0); BLOOD UREA NITROGEN,BUN 24.0 mg/dL (7-18); CARBON DIOXIDE,CO2 32.0 mmol/L (21-32); CHLORIDE,CL 96.0 mEq/L (98-106); CREATININE 1.4 mg/dL (0.6-1.0); EST CRCL DRUG DOSING (CG) 28.72 mL/min; GLUCOSE RANDOM 109.0 mg/dL (75-99); POTASSIUM,K 3.4 mEq/L (3.5-5.0); PROTEIN TOTAL,TP 7.9 g/dL (6.4-8.2); SODIUM,NA 136.0 mEq/L (136-145)
[2025-05-28 08:20] LABS: ESTIMATED GFR 39.0 mL/min (>=60)
[2025-05-28 09:26] LABS: BASOPHILS ABSOLUTE AUTO 0.04 10^3/uL (0.00-0.50); BASOPHILS PERCENT AUTO 0.6 % (0-1); EOSINOPHILS ABSOLUTE AUTO 0.53 10^3/uL (0.00-1.50); EOSINOPHILS PERCENT AUTO 7.4 % (0-6); IMMATURE GRAN ABSOLUTE AUTO 0.01 10^3/uL (0.00-0.49); IMMATURE GRAN PERCENT AUTO 0.1 % (0.0-4.9); LYMPHOCYTES ABSOLUTE AUTO 1.23 10^3/uL (0.60-5.00); LYMPHOCYTES PERCENT AUTO 17.1 % (24-44); MONOCYTES ABSOLUTE AUTO 0.66 10^3/uL (0.00-1.50); MONOCYTES PERCENT AUTO 9.2 % (0-10); NEUTROPHILS ABSOLUTE AUTO 4.74 x10^3/uL (1.80-8.00); NEUTROPHILS PERCENT AUTO 65.6 % (41-71); PLATELET COUNT,PLT 240 10^3/uL (150-400); RED BLOOD CELL COUNT 4.49 x10^6/uL (4.00-5.50); WHITE BLOOD CELL COUNT,WBC 7.2 10^3/uL (4.0-11.0)
[2025-05-29 08:20] LABS: PLATELET COUNT,PLT 240 10^3/uL (150-400); RED BLOOD CELL COUNT 4.25 x10^6/uL (4.00-5.50); WHITE BLOOD CELL COUNT,WBC 6.5 10^3/uL (4.0-11.0)
[2025-05-29 08:25] LABS: ALANINE AMINOTRANSFERASE,ALT 20.0 U/L (12-78); ASPARTATE AMNIOTRANSFERASE,AST 29.0 U/L (15-37); BILIRUBIN TOTAL 0.4 mg/dL (0.0-1.0); BLOOD UREA NITROGEN,BUN 32.0 mg/dL (7-18); CARBON DIOXIDE,CO2 35.0 mmol/L (21-32); CHLORIDE,CL 95.0 mEq/L (98-106); CREATININE 1.4 mg/dL (0.6-1.0); EST CRCL DRUG DOSING (CG) 28.72 mL/min; GLUCOSE RANDOM 104.0 mg/dL (75-99); POTASSIUM,K 3.5 mEq/L (3.5-5.0); PROTEIN TOTAL,TP 7.5 g/dL (6.4-8.2); SODIUM,NA 134.0 mEq/L (136-145)
[2025-05-29 08:31] LABS: ESTIMATED GFR 39.0 mL/min (>=60)
[2025-05-29 09:03] LABS: EOSINOPHILS ABSOLUTE MAN 0.78 10^3/uL (0.00-0.45); EOSINOPHILS PERCENT MAN 12 % (0-5); LYMPHOCYTES ABSOLUTE MAN 1.69 10^3/uL (1.00-4.80); LYMPHOCYTES PERCENT MAN 26 % (21-55); MONOCYTES ABSOLUTE MAN 0.46 10^3/uL (0.00-0.80); MONOCYTES PERCENT MAN 7 % (2-12); NEUTROPHILS ABSOLUTE MAN 3.58 10^3/uL (1.80-7.00); SEG NEUTROPHILS PERCENT MAN 55 % (35-85)
[2025-05-29] MEDS: Take Home: hydrOXYzine HCl 25 MG Tab, 4 Tab Pack PO ONE (09:52)
[2025-05-29] MEDS: Take Home: Doxycycline 100 MG Cap, 4 Cap Pack PO ONE (09:52)
[2025-05-29 09:53] VITALS: BP 103/53
[2025-05-29 11:32] VITALS: PULSE 59
== END 2025-05-29 11:40 | disposition home or self-care (01) | DRG 603 ==
LOC: CC.ED 21:15 → CC.MS 22:35 → UNDOADMIN 22:45 → CC.MS 22:45
PROVIDERS: ADMIT Nurse Practitioner Family; ATTEND Nurse Practitioner Family
DX: L03.211 Cellulitis of face (principal); L03.115 Cellulitis of right lower limb; L03.116 Cellulitis of left lower limb; I10 Essential (primary) hypertension; Z88.1 Allergy status to other antibiotic agents; F32.A Depression, unspecified; Z79.51 Long term (current) use of inhaled steroids; E66.9 Obesity, unspecified; Z68.39 Body mass index [BMI] 39.0-39.9, adult; Z90.49 Acquired absence of other specified parts of digestive tract; Z88.2 Allergy status to sulfonamides; Z98.890 Other specified postprocedural states; Z79.899 Other long term (current) drug therapy; Z79.52 Long term (current) use of systemic steroids; Z88.8 Allergy status to other drugs, medicaments and biological substances; Z98.891 History of uterine scar from previous surgery
CPT/HCPCS: 36415; 80053; 83605; 85025; 86140; 87040; 94640; 96374; 99223; 99232; 99233; 99238; 99284-25; A9270-GY; J0690; J1650

== ENCOUNTER 2025-07-02 12:18 | Emergency (ER) | payer MEDICARE, OTHER ==
[2025-07-02] MEDS: Take Home: Doxycycline 100 MG Cap, 4 Cap Pack PO ONE (12:51)
[2025-07-02 13:10] VITALS: BP 146/70; PULSE 55
== END 2025-07-02 13:08 | disposition home or self-care (01) ==
LOC: CC.ED 12:18
DX: L03.211 Cellulitis of face (principal); I10 Essential (primary) hypertension; E66.9 Obesity, unspecified; Z68.38 Body mass index [BMI] 38.0-38.9, adult; Z88.0 Allergy status to penicillin; Z88.1 Allergy status to other antibiotic agents; Z88.2 Allergy status to sulfonamides; Z88.8 Allergy status to other drugs, medicaments and biological substances; Z79.899 Other long term (current) drug therapy; Z87.891 Personal history of nicotine dependence; Z90.49 Acquired absence of other specified parts of digestive tract
CPT/HCPCS: 99283; 99284; A9270-GY